=== PATIENT | male | born 1985 | race Caucasian/White ===

== ENCOUNTER 2016-08-11 23:21 | Emergency (ER) | payer SELFPAY ==
[~2016-08-11] VITALS: Ht 177.8 cm; Wt 83.0 kg
[~2016-08-11 23:21] MED LIST: CEPH-443 PO; CYCL-319 PO; DENIES; HYDR-906 PO; IBUP-1542 PO; ULT50 PO
[2016-08-11 23:26] VITALS: Ht 177.8 cm; Wt 83.0 kg
--- NOTE | 2016-08-12 01:33 | ERD ---
ER Documentation Chief Complaint Date/Time DATE: 08/12/16 TIME: 01:30 Chief Complaint lower abd pain x 4 days HPI 30-year-old male presents to emergency department for complaints of bilateral lower abdominal pain, pelvic pain, bilateral groin pain, bilateral scrotal pain for 4 days. Patient discussed pain on affected area, sharp pain, 6/10, nontender worse with anything. Patient denies hematuria or dysuria. Patient denies any flank pain. Patient denies any new sexual partner. Patient denies any hematuria. Patient denies any sick contacts. Patient denies any cough, runny nose, nasal congestion. Patient denies any chest or palpitations. Patient denies any other symptoms. Patient did not take any medications to help with symptoms. ROS All systems reviewed and are negative except as per history of present illness. Medications Home Meds Active Scripts Ibuprofen* (Motrin*) 600 Mg Tab, 600 MG PO Q6, #30 TAB Prov:PALMA LYONS 06/22/16 Hydrocodone/Acetaminophen (Bunkie 5-325 Tablet) 1 Each Tablet, 1 TAB PO Q6H Y for PAIN, #10 TAB Prov:PALMA LYONS 06/22/16 Cephalexin* (Keflex*) 500 Mg Capsule, 500 MG PO QID for 7 Days, CAP Prov:PALMA LYONS 06/22/16 Ibuprofen* (Motrin*) 600 Mg Tab, 600 MG PO Q6, #30 TAB Prov:ALEKSEY STEVENS PA-C 04/08/16 Tramadol HCl (Tramadol HCl) 50 Mg Tablet, 50 MG PO Q4 Y for PAIN, #20 TAB Prov:ALEKSEY STEVENS PA-C 04/08/16 Cyclobenzaprine Hcl* (Cyclobenzaprine Hcl*) 10 Mg Tablet, 10 MG PO BID, #10 TAB Prov:ALEKSEY STEVENS PA-C 04/08/16 Reported Medications [Denies] No Conflict Check 09/05/10 Allergies Allergies: Coded Allergies: No Known Allergies (Verified Allergy, Mild, 04/16/10) PMhx/Soc Medical and Surgical Hx: pt denies Medical Hx, pt denies Surgical Hx History of Surgery: No Anesthesia Reaction: No Hx Neurological Disorder: No Hx Respiratory Disorders: No Hx Cardiac Disorders: No Hx Psychiatric Problems: No Hx Miscellaneous Medical Probl: No Hx Alcohol Use: No Hx Substance Use: No Hx Tobacco Use: No FmHx Family History: No coronary disease, No diabetes, No other Physical Exam Vitals Vital Signs Date Time Temp Pulse Resp B/P Pulse Ox O2 Delivery O2 Flow Rate FiO2 08/11/16 23:26 97.5 76 20 175/86 100 Physical Exam GENERAL: The patient is well developed and appropriate for usual state of health, in no apparent distress. CHEST: Clear to auscultation bilaterally. There are no rales, wheezes or rhonchi. HEART: Regular rate and rhythm. No murmurs, clicks, rubs or gallops. No S3 or S4. ABDOMEN: Soft, nontender and nondistended. Good bowel sounds. No rebound or guarding. No gross peritonitis. No gross organomegaly or masses. No Solis sign or McBurney point tenderness. BACK: No midline or flank tenderness. EXTREMITIES: Equal pulses bilaterally. There is no peripheral clubbing, cyanosis or edema. No focal swelling or erythema. Full range of motion. Grossly neurovascularly intact. NEURO: Alert and oriented. Cranial nerves 2-12 intact. Motor strength in all 4 extremities with 5/5 strength. Sensation grossly intact. Normal speech and gait. SKIN: There is no apparent rash or petechia. The skin is warm and dry. HEMATOLOGIC AND LYMPHATIC: There is no evidence of excessive bruising or lymphedema. No gross cervical, axillary, or inguinal lymphadenopathy. Result Diagram: 08/12/168 08/12/168 Results 24 hrs Laboratory Tests Test 08/12/16 02:48 Alanine Aminotransferase (ALT/SGPT) 65IU/L Albumin 4.9g/dl Albumin/Globulin Ratio 1.32 Alkaline Phosphatase 59IU/L Anion Gap 17 Aspartate Amino Transf (AST/SGOT) 35IU/L Basophils # 0.010^3/ul Basophils % 0.6% Blood Urea Nitrogen 16mg/dl Calcium Level 9.9mg/dl Carbon Dioxide Level 28mmol/L Chloride Level 102mmol/L Creatinine 0.90mg/dl Direct Bilirubin 0.00mg/dl Eosinophils # 0.310^3/ul Eosinophils % 4.0% Globulin 3.70g/dl Glucose Level 90mg/dl Hematocrit 44.0% Hemoglobin 15.3g/dl Indirect Bilirubin 0.1mg/dl Lipase 32U/L Lymphocytes # 2.210^3/ul Lymphocytes % 35.6% Mean Corpuscular Hemoglobin 30.0pg Mean Corpuscular Hemoglobin Concent 34.8g/dl Mean Corpuscular Volume 86.3fl Mean Platelet Volume 8.1fl Monocytes # 0.510^3/ul Monocytes % 8.1% Neutrophils # 3.310^3/ul Neutrophils % 51.7% Nucleated Red Blood Cells # 0.010^3/ul Nucleated Red Blood Cells % 0.0/100WBC Platelet Count 76941^3/UL Potassium Level 4.4mmol/L Red Blood Count 5.1010^6/ul Red Cell Distribution Width 12.9% Sodium Level 143mmol/L Total Bilirubin 0.1mg/dl Total Protein 8.6g/dl Urine Bilirubin NEGATIVE Urine Clarity CLEAR Urine Color LT. YELLOW Urine Glucose NEGATIVE% Urine Hemoglobin NEGATIVE Urine Ketones NEGATIVE Urine Leukocyte Esterase NEGATIVE Urine Nitrite NEGATIVE Urine Specific [place] 1.015 Urine Total Protein NEGATIVE Urine Urobilinogen 0.2 E.U./dL Urine pH 6.0 White Blood Count 6.310^3/ul PROCEDURE: ULTRASOUND TESTICULAR CLINICAL INDICATION: 30-year-old male with testicular pain. TECHNIQUE: Multiple sonographic images of the scrotal region were obtained utilizing a linear array transducer with grayscale and color-flow and a Doppler imaging. The images were reviewed on a high-resolution PACS workstation. COMPARISON: None. FINDINGS: The right testicle is well visualized and has a normal echotexture. No focal areas of abnormal echogenicity are visualized. The right testicle measures 4.4 x 2.5 x 2.6 cm. There is normal color-flow. The right epididymis is visualized and measures approximately measures 13 x 8 mm. There is normal color-flow. The left testicle is well visualized and has a normal echotexture. No focal areas abnormal echogenicity are visualized. The left testicle measures 4.6 x 2.2 x 2.7 cm. There is normal color-flow. The left epididymis is visualized and measures approximately measures 11 x 9 mm. There is normal color-flow. There is a left epididymal cyst measuring 7 x 6 x 7 mm. IMPRESSION: 1. No sonographic evidence for testicular torsion. 2. Left epididymal cyst. .Naveen Elliott MD, MD Date Time Electronically viewed and signed by .Naveen Elliott MD, MD on 08/12/2016 02:06 .M/ CC: MARVA URBAN MECHANICAL MAINTENANCE FOREMAN PROCEDURE: ULTRASOUND TESTICULAR CLINICAL INDICATION: 30-year-old male with testicular pain. TECHNIQUE: Multiple sonographic images of the scrotal region were obtained utilizing a linear array transducer with grayscale and color-flow and a Doppler imaging. The images were reviewed on a high-resolution PACS workstation. COMPARISON: None. FINDINGS: The right testicle is well visualized and has a normal echotexture. No focal areas of abnormal echogenicity are visualized. The right testicle measures 4.4 x 2.5 x 2.6 cm. There is normal color-flow. The right epididymis is visualized and measures approximately measures 13 x 8 mm. There is normal color-flow. The left testicle is well visualized and has a normal echotexture. No focal areas abnormal echogenicity are visualized. The left testicle measures 4.6 x 2.2 x 2.7 cm. There is normal color-flow. The left epididymis is visualized and measures approximately measures 11 x 9 mm. There is normal color-flow. There is a left epididymal cyst measuring 7 x 6 x 7 mm. IMPRESSION: 1. No sonographic evidence for testicular torsion. 2. Left epididymal cyst. .Naveen Elliott MD, MD Date Time Electronically viewed and signed by .Naveen Elliott MD, MD on 08/12/2016 02:06 .M/ CC: MARVA URBAN MECHANICAL MAINTENANCE FOREMAN Procedures/[facility] Medical Decision Making: Patient's abdominal pain most likely is consistent with constipation. Patient also has left epididymal cyst. No symptoms of Sickler torsion, epididymitis or orchitis. There is low suspicion for abdominal emergencies at this time. Patients abdominal exam is normal at this time. Patients radiology exam does not show any abdominal emergencies at this time. There is low suspicion for appendicitis, cholecystitis, abdominal aortic aneurysms or peritonitis at this time. There is low suspicion for sepsis. Patient appears well and is hemodynamically stable. Disposition: Home. Condition: Stable Prescription tramadol, MiraLAX, Colace Instructions: Patient is advised to take medications as prescribed. Patient is advised to rest, increase fluid intake and do brat diet for next 1-2 days and progress as tolerated. Patient is advised that if symptoms are worse, severe abdominal pain, uncontrolled vomiting, high fever, severe flank pain, worst signs and symptoms, to return to the emergency department immediately. Otherwise, patient can follow up with primary care doctor in 5-7 days. Departure Diagnosis: Primary Impression: Constipation Constipation type: unspecified constipation type Qualified Code: K59.00 - Constipation, unspecified constipation type Additional Impression: Epididymal cyst Condition: Stable Patient Instructions: Constipation (Adult), Testicular Self-Exam (CECILY) Additional Instructions: Patient is advised to take medications as prescribed. Patient is advised to rest , increase fluid intake and do brat diet for next 1-2 days and progress as tolerated. Patient is advised that if symptoms are worse, severe abdominal pain , uncontrolled vomiting, high fever, severe flank pain, worst signs and symptoms , to return to the emergency department immediately. Otherwise, patient can follow up with primary care doctor in 5-7 days. MARVA URBAN NP Aug 12, 2016 01:32
--- NOTE | 2016-08-12 02:04 | RADRPT ---
PROCEDURE: CT ABDOMEN/PELVIS WITHOUT CONTRAST CLINICAL INDICATION: 30-year-old male with abdominal pain. TECHNIQUE: The study was performed utilizing a GE HuJe labspeed VCT 64-slice CT scanner. Direct axia l sections were obtained through the abdomen and pelvis without the use of intravenous contrast mate rial. Sagittal and coronal reformations were obtained. Automated exposure control and iterative minnie nstruction techniques were utilized for this examination. The images were reviewed [facility] a [facility] CTD/vol = 9.1 mGy; Total Exam DLP = 562.4 mGy-cm. COMPARISON: None. FINDINGS: The lung bases are unremarkable. There is no evidence for significant pleural effusion. The liver has a normal size and contour without focal areas of abnormal density. No intrahepatic nor extrahepa tic biliary ductal dilatation is seen. The gallbladder demonstrates no wall thickening nor perichole cystic fluid. No biliary stones are evident. The pancreas is without areas of abnormal attenuation. This spleen is identified and has a normal size without abnormal density. The adrenal glands are un remarkable. The kidneys are without abnormal density. No hydroureteronephrosis nor nephroureterolith iasis is evident. The urinary bladder contains urine. There is [id number] retained stool throu ghout the colon without gross bowel obstruction. The appendix is visualized and is without abnormal thickening or surrounding inflammatory reaction. There is no significant free fluid. The aortoiliac vessels are without aneurysmal dilatation. The osseous structures are intact. IMPRESSION: 1. No CT evidence for obstructive uropathy or renal calculi. 2. Retained stool without gross bowel obstruction. 3. No CT evidence for appendicitis. .Naveen Elliott MD, Date Time Electronically viewed and signed by .Naveen Elliott MD, on 08/12/2016 02:04 .Jeannette/
--- NOTE | 2016-08-12 02:07 | RADRPT ---
PROCEDURE: ULTRASOUND TESTICULAR CLINICAL INDICATION: 30-year-old male with testicular pain. TECHNIQUE: Multiple sonographic images of the scrotal region were obtained utilizing a linear arra y transducer with grayscale and color-flow and a Doppler imaging. The images were reviewed on a high -resolution PACS workstation. COMPARISON: None. FINDINGS: The right testicle is well visualized and has a normal echotexture. No focal areas of abnormal echog enicity are visualized. The right testicle measures 4.4 x 2.5 x 2.6 cm. There is normal color-flow. The right epididymis is visualized and measures approximately measures 13 x 8 mm. There is normal co lamar-flow. The left testicle is well visualized and has a normal echotexture. No focal areas abnormal echogenic ity are visualized. The left testicle measures 4.6 x 2.2 x 2.7 cm. There is normal color-flow. The l eft epididymis is visualized and measures approximately measures 11 x 9 mm. There is normal color-fl ow. There is a left epididymal cyst measuring 7 x 6 x 7 mm. IMPRESSION: 1. No sonographic evidence for testicular torsion. 2. Left epididymal cyst. .Naveen Elliott MD, MD Date Time Electronically viewed and signed by .Naveen Elliott MD, on 08/12/2016 02:06 .Jeannette/
[2016-08-12 03:20] LABS: BASOPHILS % 0.6 % (0.0-2.0); CONDITION 1; EOSINOPHILS # 0.3 10^3/ul (0.0-0.5); HEMOGLOBIN 15.3 g/dl (14.0-18.0); LYMPHOCYTES # 2.2 10^3/ul (0.8-2.9); LYMPHOCYTES % 35.6 % (15.0-51.0); MEAN CORPUSCULAR HGB CONC 34.8 g/dl (32.0-37.0); MEAN CORPUSCULAR VOLUME 86.3 fl (82.0-101.0); MEAN PLATELET VOLUME 8.1 fl (7.4-10.4); MONOCYTE # 0.5 10^3/ul (0.3-0.9); MONOCYTES % 8.1 % (0.0-11.0); NEUTROPHIL # 3.3 10^3/ul (1.6-7.5); NEUTROPHILS % 51.7 % (39.0-77.0); PLATELET COUNT 245 10^3/UL (140-440); RED CELL DISTRIBUTION WIDTH 12.9 % (11.5-14.5); UNCORRECTED WBC 6.3 10^3/ul (4.8-10.8); WHITE BLOOD COUNT 6.3 10^3/ul (4.8-10.8)
[2016-08-12 03:24] LABS: ADD UMIC NO; URINE BILIRUBIN (Dip) NEGATIVE (NEGATIVE); URINE BLOOD (Dip) NEGATIVE (NEGATIVE); URINE COLOR LT. YELLOW (YELLOW); URINE GLUCOSE (Dip) NEGATIVE (NEGATIVE); URINE KETONES (Dip) NEGATIVE (NEGATIVE); URINE LEUKOCYTE ESTERASE (Dip) NEGATIVE (NEGATIVE); URINE NITRITE (Dip) NEGATIVE (NEGATIVE); URINE TOTAL PROTEIN (Dip) NEGATIVE (NEGATIVE); URINE UROBILINOGEN (Dip) 0.2 E.U./dL (0.1-1.0)
[2016-08-12 03:28] LABS: ALBUMIN 4.9 g/dl (3.3-4.9)
[2016-08-12 03:29] LABS: POTASSIUM 4.4 mmol/L (3.5-5.1)
[2016-08-12 03:31] LABS: ALBUMIN/GLOBULIN RATIO 1.32; BILIRUBIN,INDIRECT 0.1 mg/dl (0-1.1); BILIRUBIN,TOTAL 0.1 mg/dl (0.2-1.3); CREATININE 0.9 mg/dl (0.61-1.24); TOTAL PROTEIN 8.6 g/dl (6.1-8.1)
[2016-08-12 03:32] LABS: CALCIUM 9.9 mg/dl (8.4-10.2)
[2016-08-12] MEDS ORDERED: ULT50 PO (03:37)
[2016-08-12] MEDS ORDERED: DOCU-144 PO (03:37)
[2016-08-12] MEDS ORDERED: POLY17PO6 PO (03:37)
[2016-08-12 04:27] VITALS: BP 152/99; PULSE 71; RESP 18; TEMP 97.9
== END 2016-08-12 04:28 | disposition home or self-care (01) ==
LOC: FTE 23:21
DX: K59.00 Constipation, unspecified (principal); N50.3 Cyst of epididymis
CPT/HCPCS: 36415; 74176; 76870; 80053; 81003; 83690; 85025

== ENCOUNTER 2017-03-31 20:14 | Emergency (ER) | payer SELFPAY ==
[~2017-03-31] VITALS: Ht 174 cm; Wt 80.5 kg
[~2017-03-31 20:14] MED LIST changes: +DOCU-144 PO; +POLY17PO6 PO; +TRAM50TA2 PO; -ULT50 PO
[2017-03-31 20:54] VITALS: Ht 174 cm; Wt 80.5 kg
--- NOTE | 2017-03-31 21:42 | ERA ---
ER Documentation Chief Complaint Date/Time DATE: 03/31/17 TIME: 21:38 Chief Complaint L sided CP today w/ on/off nape pains HPI Otherwise healthy 31-year-old male presenting with a chief complaint of chest pain that is sharp in nature starting today. Pain is intermittent. Denies any aggravating/alleviating factors. Denies any trauma. Has not had symptoms like this before. Denies any family history of cardiac disease. No recent travel. Vaccination status up-to-date. Pt denies previous OR/VTE, c resting or squeezing-like chest pain, upper back pain, aching arm pain, leg pain/swelling, fatigue, dyspnea, syncope, irregular heart beat, or epigastric pain. Patient also denies any personal or family cardiac history. Nursing notes have been reviewed and are consistent with history given. ROS All systems reviewed and are negative except as per history of present illness. Medications Home Meds Active Scripts Tramadol HCl (Tramadol HCl) 50 Mg Tablet, 50 MG PO Q6 Y for PAIN, #20 TAB Prov:MARVA URBAN [employer]LECTRICAL AND [employer] MOCK UP MECHANIC 08/12/16 Docusate Sodium* (Colace*) 100 Mg Capsule, 100 MG PO TID, #30 CAP Prov:MARVA URBAN [employer]ICAL AND [employer] M[employer] UP MECHANIC 08/12/16 Polyethylene Glycol* (Miralax*) 17 Gm Powd.pack, 17 GM PO DAILY, #7 Prov:MARVA URBAN ELECT[employer]ICAL AND [employer] M[employer] UP MECHANIC 08/12/16 Ibuprofen* (Motrin*) 600 Mg Tab, 600 MG PO Q6, #30 TAB Prov:PALMA LYONS 06/22/16 Hydrocodone/Acetaminophen (Nelson 5-325 Tablet) 1 Each Tablet, 1 TAB PO Q6H Y for PAIN, #10 TAB Prov:PALMA LYONS 06/22/16 Cephalexin* (Keflex*) 500 Mg Capsule, 500 MG PO QID for 7 Days, CAP Prov:PALMA LYONS 06/22/16 Ibuprofen* (Motrin*) 600 Mg Tab, 600 MG PO Q6, #30 TAB Prov:ALEKSEY STEVENS PA-C 04/08/16 Tramadol HCl (Tramadol HCl) 50 Mg Tablet, 50 MG PO Q4 Y for PAIN, #20 TAB Prov:ALEKSEY STEVENS PA-C 04/08/16 Cyclobenzaprine Hcl* (Cyclobenzaprine Hcl*) 10 Mg Tablet, 10 MG PO BID, #10 TAB Prov:ALEKSEY STEVENS Robin BUI 04/08/16 Reported Medications [Denies] No Conflict Check 09/05/10 Allergies Allergies: Coded Allergies: No Known Allergies (Verified Allergy, Mild, 04/16/10) PMhx/Soc Medical and Surgical Hx: pt denies Medical Hx, pt denies Surgical Hx History of Surgery: No Anesthesia Reaction: No Hx Neurological Disorder: No Hx Respiratory Disorders: No Hx Cardiac Disorders: No Hx Psychiatric Problems: No Hx Miscellaneous Medical Probl: No Hx Alcohol Use: No Hx Substance Use: No Hx Tobacco Use: No Smoking Status: Never smoker Physical Exam Vitals Vital Signs Date Time Temp Pulse Resp B/P Pulse Ox O2 Delivery O2 Flow Rate FiO2 03/31/17 20:54 98.8 84 20 168/105 98 Physical Exam Const: Well-appearing. No acute distress. Head: Normocephalic, Atraumatic. Eyes: Non-injected; No discharge. EOMI and ROMA bilaterally. Ears: Normal External Ears, EACs clear, TM normal bilaterally without erythema. Nose: Normal external nose; no discharge, or sinus tenderness. Oral: No oral edema visualized. Mucous membranes moist and pink. Neck: No cervical lymphadenopathy, or masses palpated. Supple ~ No meningismus. Pulm: Good air movement in upper and lower respiratory tracts. Clear to auscultation bilaterally. No dyspnea or stridor. Cardio: Regular rate and rhythm; No murmurs, gallops or rubs auscultated. Radial pulses 2+ bilaterally. No cyanosis noted. Capillary refill less than 2 seconds. Abd: Normal bowel sounds. Soft, non tender, non distended. MS: Normal motor strength, normal tone with gross examination. Skin: No petechiae or rashes. Good turgor. Back: No midline, flank or CVA tenderness. Ext: No edema. Normal movement of all extremities grossly observed. Neur: Neurovascularly intact bilaterally. Psych: Normal Mood and Affect. Results 24 hrs Current Medications Medications (Trade) Dose Ordered Sig/Luisa Route PRN Reason Start Time Stop Time Status Last Admin Dose Admin Acetaminophen (Tylenol Tab) 650 mg ONCE ONCE PO 03/31/17 22:00 03/31/17 22:01 Procedures/MDM Well-appearing 31-year-old male with no medical conditions presenting with a chief complaint of chest pain. Chest pain is sharp in nature. Physical exam reproduce the chest pain with deep inspiration. EKG was obtained read by my attending as normal sinus rhythm, no ST elevation or depression, no T-wave abnormalities, normal axis, good baseline. Most likely diagnosis is pleuritic chest pain due to unknown etiology. I have little suspicion for acute coronary syndrome, pulmonary embolism, pneumonia, pneumothorax, hemothorax, or other acute cardiopulmonary pathologies. I have spoke with the patient regarding their condition and future management. Patient requested Tylenol which was given in the ED for symptomatic relief. They have verbally responded that they understand their status and treatment plan. The patients vitals are stable, and their current condition is appropriate for discharge. The patient will be given discharge instructions with return precautions. Departure Diagnosis: Primary Impression: Chest pain Qualified Code: R07.1 - Chest pain on breathing Condition: Stable Referrals: [facility] YOU HAVE RECEIVED A MEDICAL SCREENING EXAM AND THE RESULTS INDICATE THAT YOU DO NOT HAVE A CONDITION THAT REQUIRES URGENT TREATMENT IN THE EMERGENCY DEPARTMENT. FURTHER EVALUATION AND TREATMENT OF YOUR CONDITION CAN WAIT UNTIL YOU ARE SEEN IN YOUR DOCTORS OFFICE WITHIN THE NEXT 1-2 DAYS. IT IS YOUR RESPONSIBILITY TO MAKE AN APPOINTMENT FOR FOLOW-UP CARE. IF YOU HAVE A PRIMARY DOCTOR --you should call your primary doctor and schedule an appointment IF YOU DO NOT HAVE A PRIMARY DOCTOR YOU CAN CALL OUR PHYSICIAN REFERRAL HOTLINE AT IF YOU CAN NOT AFFORD TO SEE A PHYSICIAN YOU CAN CHOSE FROM THE FOLLOWING [facility] [address] [facility] [address] [facility] [facility] [address] [facility] [address] [facility] [address]. [address] [address] PENDING SALE TO [facility] ([facility]) Usted se madison hecho un examen mdico de control que le indica que no est en anni condicin que requiera tratamiento urgente en el Departamento de Emergencia. Un estudio ms profundo y el tratamiento de lentz condicin pueden esperar sin ningn riesgo hasta que usted sea atendida/o en el consultorio de lentz mdico o anni cl marshall. Es responsabilidad suya arreglar anni cinda para el seguimiento del leny. MANEJO DE CONDICIONES NO URGENTES EN EL FUTURO 1) Si usted tiene un mdico de atencin primaria: Usted debera llamar a lentz mdico de atencin primaria antes de venir al departamento de emergencia. Despus de las horas de consultorio, lentz doctor o lentz asociado/a est disponible por telfono. El mdico o enfermero de roderick en el servicio telefnico puede asesorarle por alyx medio para atender el problema, o leny contrario se puede programar anni cinda. 2) Si usted no tiene un mdico de atencin primaria: Llame al mdico o clnica de referencia que aparece abajo lisa las horas de consultorio para hacer anni cinda para que le vean. CLINICAS: [facility] [phone] [address] [facility] [phone] [address] [facility] [phone] [address] [facility]. [facility] [phone] [address] [facility]. [place] [id number] [phone] [facility]. [phone] [address] Additional Instructions: Cindy un seguimiento con lentz PCP dentro de los prximos 1-3 salmon para anni evaluaci n ms completa y anni posible derivacin a un especialista. Devuelva el departamento de emergencia inmediatamente si los sntomas empeoran o cambian. Si tiene alguna pregunta con respecto a los medicamentos, consulte con lentz farmac utico o con nosotros antes de salir. Si se producen reacciones adversas mientras franki roge medicamentos, suspenda el tratamiento y regrese inmediatamente al servicio de urgencias. [place] roge medicamentos segn las indicaciones y complete el curso completo del tratamiento. HALEY GUTIERRES PA-C Mar 31, 2017 21:42
[2017-03-31] MEDS ORDERED: ACETAMINOPHEN 325 MG TAB PO ONE (22:00)
== END 2017-03-31 21:54 | disposition home or self-care (01) ==
LOC: FTE 20:14
DX: R07.1 Chest pain on breathing (principal)
CPT/HCPCS: 93005